=== PATIENT | female | born 1945 | race African-American/Black ===

== ENCOUNTER 2017-05-25 10:25 | Outpatient (CLI) | payer MEDICARE ==
--- NOTE | 2017-05-26 10:32 | Mammography Report ---
BILATERAL DIGITAL SCREENING MAMMOGRAM with CAD: 05/25/17 10:25:00 CLINICAL: Routine screening. COMPARISON:03/21/17 and 08/15/14 FINDINGS: The breasts are heterogeneously dense, which may obscure small masses. No mass, architectural distortion or suspicious calcifications. IMPRESSION: No mammographic evidence of malignancy. BI-RADS CATEGORY: 1 - - Negative RECOMMENDATION: Routine mammographic screening in one year. COMMENT: Patient follow-up letters are generated by our [employer] application.
== END 2017-05-25 10:26 | disposition home or self-care (01) ==
LOC: EDBD 10:25 → MAMMO 10:25
PROVIDERS: ATTEND Internal Medicine
DX: Z12.31 Encounter for screening mammogram for malignant neoplasm of breast (principal)
CPT/HCPCS: 77067